=== PATIENT | female | born 1940 | race Native Hawaiian/Other Pacific Islander ===

== ENCOUNTER 2016-05-17 14:38 | Outpatient (CLI) | payer OTHER | END 2016-05-17 23:47 | disposition home or self-care (01) | LOC: MAMMO 14:38 | DX: Z12.31 Encounter for screening mammogram for malignant neoplasm of breast (principal) | CPT/HCPCS: G0202-TC ==

== ENCOUNTER 2016-11-21 13:51 | Outpatient (CLI) | payer OTHER | END 2016-11-21 14:55 | disposition home or self-care (01) | LOC: RAD 13:51 | DX: M79.641 Pain in right hand (principal) ==

== ENCOUNTER 2018-01-08 14:00 | Outpatient (CLI) | payer OTHER | END 2018-01-08 19:25 | disposition home or self-care (01) | LOC: MAMMO 14:00 | DX: Z12.31 Encounter for screening mammogram for malignant neoplasm of breast (principal) ==

== ENCOUNTER 2022-07-18 11:20 | Outpatient (CLI) | payer OTHER | END 2022-07-18 18:59 | disposition home or self-care (01) | LOC: RAD 11:20 | PROVIDERS: ATTEND Nurse Practitioner Primary Care | DX: Z13.820 Encounter for screening for osteoporosis (principal); Z12.31 Encounter for screening mammogram for malignant neoplasm of breast; N95.8 Other specified menopausal and perimenopausal disorders ==